=== PATIENT | male | born 1935 ===

== ENCOUNTER 2018-07-11 09:06 | Emergency (ER) | payer MEDICARE, MEDICAID ==
[2018-07-11 09:21] VITALS: BMI 26.6
[2018-07-11 09:44] LABS: SQUAMOUS EPITHIAL < 1 /hpf (0-5); URINE BILIRUBIN NEGATIVE (NEGATIVE); URINE BLOOD 1+ (NEGATIVE); URINE CLARITY Clear (Clear); URINE COLOR Yellow (YELLOW); URINE GLUCOSE (UA) NORMAL (Normal); URINE LEUKOCYTE ESTERASE NEG Leu/uL (Negative); URINE PROTEIN NEGATIVE (NEGATIVE); URINE UROBILINOGEN NORMAL mg/dL (0.2-1.0)
[2018-07-11 10:16] LABS: BASO # 0.1 K/uL (0.0-0.2); BASO % 1.2 % (0.0-2.0); EOS # 0.3 K/uL (0.0-0.7); EOS % 6.6 % (0.0-4.0); HEMOGLOBIN 12.8 g/dL (12.0-18.0); LYMPH # 0.8 K/uL (1.0-4.3); LYMPH % 19.6 % (20.0-40.0); MEAN CELL VOLUME 92.7 fL (80.0-94.0); MEAN CORPUSCULAR HEMOGLOBIN 30.7 pg (27.0-31.0); MEAN CORPUSCULAR HGB CONC 33.1 g/dL (33.0-37.0); MEAN PLATELET VOLUME 8.7 fL (7.2-11.7); MONO # 0.4 K/uL (0.0-0.8); MONO % 9.7 % (0.0-10.0); NEUT # 2.7 K/uL (1.8-7.0); NEUT % 62.9 % (50.0-75.0); RBC 4.16 Mil/uL (4.40-5.90); RED CELL DISTRIBUTION WIDTH 13.6 % (11.5-14.5); WHITE BLOOD COUNT 4.3 K/uL (4.8-10.8)
--- NOTE | 2018-07-11 10:22 | C.PDOC ---
History Of Present Illness 83 y/o male presents to the ER complaining of testicular pain and swelling which has been present for the past 2 weeks. Patient states that he had similar symptoms in the past and he was instructed to see a urologist. However, he has not been follow up with a urologist because he has insurance issues. Denies having dysuria, hematuria, fever, and chills. Time Seen by Provider: 07/11/18 09:30 Chief Complaint (Nursing): Male Genitourinary History Per: Patient History/Exam Limitations: no limitations Onset/Duration Of Symptoms: Days Current Symptoms Are (Timing): Still Present Severity: Moderate Past Medical History Reviewed: Historical Data, Nursing Documentation, Vital Signs Vital Signs: Last Vital Signs Temp 98.2 F 07/11/18 09:17 Pulse 65 07/11/18 09:17 Resp 18 07/11/18 09:17 BP 202/96 H 07/11/18 09:17 Pulse Ox 95 07/11/18 09:17 - Medical History PMH: HTN Surgical History: No Surg Hx Family History: States: No Known Family Hx - Social History Hx Alcohol Use: No Hx Substance Use: No - Immunization History Hx Tetanus Toxoid Vaccination: No Hx Influenza Vaccination: No Hx Pneumococcal Vaccination: No Review Of Systems Except As Marked, All Systems Reviewed And Found Negative. Constitutional: Negative for: Fever, Chills Genitourinary: Positive for: Other (testicular pain and swelling). Negative for: Dysuria, Hematuria Physical Exam - Physical Exam Appears: Non-toxic, No Acute Distress Skin: Normal Color, Warm, Dry Head: Atraumatic, Normacephalic Eye(s): bilateral: Normal Inspection Nose: Normal Oral Mucosa: Moist Neck: Supple Chest: Symmetrical Cardiovascular: Rhythm Regular Respiratory: Normal Breath Sounds, No Rales, No Rhonchi, No Wheezing Gastrointestinal/Abdominal: Normal Exam, Soft, No Tenderness, No Guarding, No Rebound Male Genital: No Testicular Tenderness, Scrotal Swelling (moderate swelling), Other (no erythema,no mass) Extremity: Bilateral: No Pedal Edema, Normal ROM Neurological/Psych: Oriented x3, Normal Speech Gait: Steady ED Course And Treatment - Laboratory Results Result Diagrams: 07/11/18 10:05 07/11/18 10:05 O2 Sat by Pulse Oximetry: 95 (RA) Pulse Ox Interpretation: Normal - Physician Consult Information Time Consulting Physician Contacted: 13:25 Physician Contacted: Mahamed Chiu Outcome Of Conversation: Will see the patient in his office Monday 07/16 at 8:30 am Medical Decision Making Medical Decision Making: Impression: Testicular Swelling Plan: * Labs * UA * US- Testicular Case reviewed with Dr Urbina who also examined patient and agrees with plan Labs and US reviewed. Case discussed with Dr Chiu. Patient to follow up outpatient. Disposition Counseled Patient/Family Regarding: Diagnosis, Need For Followup - Disposition Referrals: Shaka Sosa MD [Staff Provider] - Mahamed Chiu MD [Staff Provider] - Disposition: HOME/ ROUTINE Disposition Time: 13:23 Condition: STABLE Additional Instructions: See DR aMhamed Chiu Monday 8:30am Malik DR Mahamed Chiu 8:30 am Instructions: Hydrocele/Varicocele (DC) Print Language: CAP[place]DEAN - POA Present On Arrival: None - Clinical Impression Clinical Impression: Hydrocele, bilateral - PA / [employer] / Resident Statement MD/DO has reviewed & agrees with the documentation as recorded. - Scribe Statement The provider has reviewed the documentation as recorded by the Scribe Olamide Albaradoq Provider Attestation All medical record entries made by the Scribe were at my direction and personally dictated by me. I have reviewed the chart and agree that the record accurately reflects my personal performance of the history, physical exam, medical decision making, and the department course for this patient. I have also personally directed, reviewed, and agree with the discharge instructions and disposition.
[2018-07-11 10:23] LABS: ALB/GLOB RATIO 1.4 (1.0-2.1); ALBUMIN 3.7 g/dL (3.5-5.0); ALT/SGPT 18 U/L (21-72); AST/SGOT 12 U/L (17-59); BLOOD UREA NITROGEN 15 mg/dL (9-20); CALCIUM 9.3 mg/dl (8.6-10.4); GFR NON-AFRICAN AMERICAN > 60
--- NOTE | 2018-07-11 12:49 | US ---
Date of service: 07/11/2018 HISTORY: swelling and pain b.l TECHNIQUE: Realtime sonography through the scrotum with color and doppler flow. COMPARISON: Testicular ultrasound performed 05/23/17 FINDINGS: RIGHT TESTICLE: Measures 5.4 x 2.5 x 2.7 cm. Homogeneous echotexture. Blood flow is demonstrated. RIGHT EPIDIDYMIS: Measures approximately 1.4 x 1.1 x 1.3 cm. LEFT TESTICLE: Measures 5.0 x 2.1 x 2.1 cm. Homogeneous echotexture. Blood flow is demonstrated. LEFT EPIDIDYMIS: Measures approximately 0.9 x 1.2 x 1.0 cm. HYDROCELE: Large bilateral hydroceles with evidence of internal echoes/debris versus artifact. VARICOCELE: None. OTHER FINDINGS: None. IMPRESSION: Large bilateral hydroceles with evidence of internal echoes/debris versus artifact. Additional findings as above.
[2018-07-11 13:40] VITALS: BP 170/80; PULSE 70; RESP 16; TEMP 97.3
[2018-07-11 17:15] VITALS: O2SAT 95
== END 2018-07-11 14:09 | disposition home or self-care (01) ==
LOC: C.ER 09:06
DX: N43.3 Hydrocele, unspecified (principal)

== ENCOUNTER 2018-10-06 09:09 | Outpatient (CLI) | payer MEDICARE, MEDICAID | END 2018-10-06 09:10 | disposition home or self-care (01) | LOC: C.CARD 09:09 | DX: I11.9 Hypertensive heart disease without heart failure (principal) ==

== ENCOUNTER 2018-12-04 13:34 | Day surgery (SDC) | payer MEDICARE, MEDICAID ==
[2018-12-03 08:28] VITALS: BMI 32.9
[2018-12-04] MEDS ORDERED: Propofol 10 mg/ml Inj (20 ML) ONE (15:21)
[2018-12-04] MEDS ORDERED: ceFAZolin 1 gm in NS 2 GM/200 ML BAG IVPB ONE (15:25)
[2018-12-04] MEDS ORDERED: Lidocaine Hydrochloride 20 ML INJ ONE (15:25)
[2018-12-04] MEDS ORDERED: Oxycodone/Acetaminophen 5/325 mg Tab PO PRN (15:36)
[2018-12-04] MEDS ORDERED: Lactated Ringer's 1,000 ML IV SCH (16:30)
[2018-12-04] MEDS: Labetalol 5mg/ml (4ml) IV PRN ×2 (16:35→17:00)
[2018-12-04 17:44] VITALS: RESP 18; O2SAT 96
[2018-12-04 18:38] VITALS: BP 189/97; PULSE 76; TEMP 97.6
--- NOTE | 2018-12-05 20:16 | HP ---
UROLOGY ADMISSION HISTORY AND PHYSICAL REASON FOR ADMISSION: Treatment of hydrocele. HISTORY OF PRESENT ILLNESS: Mr. Campos is a very pleasant elderly gentleman, who has bilateral hydrocele. They intermittently disturb him. He came to office looking initially for treatment. We discussed options. We even did a drainage in the office today, as it was bothering him, just to see if this will make him feel better, it did and that is on the left side. Today, he is coming in, we are going to do the right side, because this side bothers him more. But then eventually we may do the left side as well. I explained to him about the risk of doing them together, the benefits of doing them together under the anesthesia benefits. After discussing all the options, he is being admitted and we are going to do a right hydrocelectomy. PAST MEDICAL AND SURGICAL HISTORY: As listed on the chart. and his medical clearance is listed on the chart. MEDICATIONS: Medications all listed. What is interesting is that there is a list, he takes aspirin every day and then he stopped it yesterday and then on the allergy list he also lists that he takes aspirin. I tried getting to the bottom of it. Whether or not he is taking aspirin is still yet unknown. Remainder of the medicines all listed. PHYSICAL EXAMINATION: GENERAL: Well-developed male in no apparent distress. VITAL SIGNS: Noted to be within normal limits. LUNGS: Clear. HEART: Normal S1, S2. ABDOMEN: Soft. No rebound or guarding. by the hydrocele. The bilateral hydroceles that are fairly significant I would say each one. RECTAL: Exam deferred for today. LABORATORY DATA: See chart. DIAGNOSIS: Bilateral hydroceles that are disturbing to the patient. He feels uncomfortable, he is not able to walk well, feels difficulty urinating. He has to push back on . PLAN: The plan for today is as follows. I discussed options with the patient. We are going to plan for a right hydrocelectomy. I explained to the patient risks, benefits. Also I discussed the idea of recurrences. After discussing all those different options with the patient, we are going to plan to proceed. Yannick Chiu MD [facility] # [id number]
--- NOTE | 2018-12-05 20:56 | OP ---
PROCEDURE DATE: 12/04/2018 UROLOGY OPERATIVE NOTE. PREOPERATIVE DIAGNOSIS: Bilateral hydrocele. POSTOPERATIVE DIAGNOSIS: Bilateral hydrocele. PROCEDURE: Right hydrocelectomy. SURGEON: Yannick Chiu MD COMPLICATIONS: There were no complications. SPECIMEN OBTAINED: Hydrocele sac. The technical is a Lord hydrocelectomy. ESTIMATED BLOOD LOSS: Les than 10 mL. There's a drain ____ Morales catheter. DRAINS: [place] drain x 2. INDICATIONS: See history and physical for the details. A pleasant gentleman, who, we discussed options yesterday for right hydrocelectomy. We discussed options. On physical exam, again, previously I had drained the left side just in the office and I have inspected have come back, but the patient did feel better with it. He wants to proceed and we are going to do a right hydrocele today and then we will discuss in the future the left. DESCRIPTION OF PROCEDURE: After the patient was brought to the operating room, placed on table. Routine monitors were placed, time-out was called to confirm the patient positioning. Antibiotic prophylaxis was used via Ancef. The skin is marked on the right side. We explained the patient treatment alternatives at length. We made a transverse incision in the relatively portion of the scrotum. We proceeded very slowly and carefully. We did to get good hemostasis, layer by layer until we delivered the entire sac intact. Once we did this, we opened up the sac and drained about 400-500 mL of clear yellow fluid. We now inspected the . We sent of little specimens for hydrocele sac. We everted the edges and we closed them in a Lord's technique. So, we state. We examined for any bleeding. There was no bleeding noted. We put two [place] drains at the portion of the wound and we closed in layers. We also infiltrated the cord and the skin with a little Marcaine for postop analgesia. Overall, the patient tolerated the procedure well without complication. He was brought to the recovery room. We then applied a dry sterile dressing with fluffy and Kerlix, and a scrotal support. The patient went to recovery room in stable condition, having tolerated the procedure well without complication. Yannick Chiu MD
== END 2018-12-04 18:21 | disposition home or self-care (01) ==
LOC: C.SDS 13:34
PROVIDERS: ATTEND Urology
DX: N43.3 Hydrocele, unspecified (principal); Z79.82 Long term (current) use of aspirin
CPT/HCPCS: 55041; 82948; 88302; J0690; J2001; J2270; J2704; J3010